=== PATIENT | male | born 1945 | race Caucasian/White ===

== ENCOUNTER 2017-04-05 10:42 | Emergency (ER) | payer MEDICARE, MEDICAID ==
[~2017-04-05] VITALS: Ht 172.7 cm; Wt 68.0 kg
[~2017-04-05 10:42] MED LIST: ASPI-605 PO; ATOR40TA PO; CARB-93 PO; CYAN10009 PO; DOCU-170 PO; FAMO-132 PO; FOLI1TAB16 PO
[2017-04-05] MEDS ORDERED: ACET-2154 PO (11:04)
[2017-04-05] MEDS ORDERED: MULT-1119 PO (11:04)
[2017-04-05] MEDS ORDERED: DIVA250T4 PO (11:04)
[2017-04-05] MEDS ORDERED: QUET25TA34 PO (11:04)
[2017-04-05] MEDS ORDERED: GABA-534 PO (11:04)
[2017-04-05] MEDS ORDERED: MEMA10TA21 PO (11:04)
[2017-04-05] MEDS ORDERED: LISI-607 PO (11:04)
[2017-04-05] MEDS ORDERED: CYAN10009 PO (11:04)
[2017-04-05 11:45] LABS: BASOPHILS % (AUTO) 0.5 % (0.0-2.0); EOSINOPHILS # (AUTO) 0.1 K/uL (0.0-0.7); HEMATOCRIT 34.5 % (40-50); HEMOGLOBIN 11.9 G/DL (14.0-18.0); LYMPHOCYTES # (AUTO) 0.8 K/UL (0.8-4.8); LYMPHOCYTES % (AUTO) 12.2 % (20.5-51.5); MEAN CORPUSCULAR HEMOGLOBIN 28.3 UUG (27.0-31.0); MEAN CORPUSCULAR HGB CONC 35 g/dL (32.0-37.0); MEAN CORPUSCULAR VOLUME 82.1 FL (82.0-92.0); MONOCYTES # (AUTO) 0.6 K/UL (0.1-1.30); MONOCYTES % (AUTO) 8.3 % (0.0-11.0); NEUTROPHILS # (AUTO) 5.2 K/UL (1.8-8.9); PLATELET COUNT (AUTO) 190 K/UL (150-450); RED BLOOD CELL COUNT(AUTO) 4.21 MIL/UL (4.7-6.1); WHITE BLOOD COUNT (AUTO) 6.7 K/UL (4.0-11.2)
[2017-04-05 11:51] LABS: ALANINE AMINOTRANSFERASE 10 U/L (16-63); ALKALINE PHOSPHATASE 49 U/L (50-136); ASPARTATE AMINOTRANSFERASE 20 U/L (15-37); BILIRUBIN,DIRECT 0.1 mg/dL (0.0-0.2); BILIRUBIN,TOTAL 0.3 mg/dL (0.2-1.0); CARBON DIOXIDE 31 mmol/L (21-32); CHLORIDE 106 mmol/L (98-107); GLUCOSE 106 mg/dL (74-106); POTASSIUM 4.3 mmol/L (3.5-5.1); UREA NITROGEN, BLOOD 31 mg/dL (7-18)
[2017-04-05 11:53] LABS: ETHANOL < 3 MG/DL (0-0)
--- NOTE | 2017-04-05 11:53 | NUR ---
Patient says that he does not feel like voiding at this time. Urinal is at bedside. Patient is calm & cooperative at this time.
[2017-04-05 11:54] LABS: CREATININE 1.6 mg/dL (0.6-1.3)
[2017-04-05 11:55] LABS: ACETAMINOPHEN < 2.0 ug/mL (10-30)
--- NOTE | 2017-04-05 13:09 | NUR ---
Patient is eating with good appetite, still pending urine sample.
--- NOTE | 2017-04-05 14:46 | NUR ---
Patient's spouse is at bedside.
--- NOTE | 2017-04-05 15:10 | NUR ---
Patient is resting comfortably in bed with eyes closed, no acute change in condition seen.
--- NOTE | 2017-04-05 17:09 | NUR ---
Patient frequently shouted "Help, help, help." Patient was assisted accordingly. Patient demanded for plastic cup instead of styrofoam- kitchen notified. Patient demanded for 4 cups of orange juice- done. [place] removed from his left foot per patient's demand- done. Comfort and safety measures maintained. Patient is still waiting for psych maintenance worker swimming pool's evaluation.
--- NOTE | 2017-04-05 18:09 | NUR ---
Fawad Navarro is now here in our ER department- pending evaluation still.
--- NOTE | 2017-04-05 18:26 | NUR ---
Patient is eating dinner tray with good appetite.
--- NOTE | 2017-04-05 18:35 | NUR ---
Patient voided on his diaper while eating dinner. We'll change diaper after eating.
--- NOTE | 2017-04-05 19:13 | NUR ---
Per Fawad no hold. [facility].
--- NOTE | 2017-04-05 19:15 | NUR ---
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
--- NOTE | 2017-04-05 20:27 | NUR ---
Patient discharged to home in stable conditon. Written and verbal after care instructions given. Patient verbalizes understanding of instructions. Picked up by [facility]. All belongings with patient. No complaint of pain upon discharge.
[2017-04-05 20:31] VITALS: BP 137/77
== END 2017-04-05 20:33 | disposition home or self-care (01) ==
LOC: ER 10:42
DX: R45.1 Restlessness and agitation (principal); K21.9 Gastro-esophageal reflux disease without esophagitis; F31.9 Bipolar disorder, unspecified; F20.9 Schizophrenia, unspecified; D64.9 Anemia, unspecified
CPT/HCPCS: 36415; 80048; 80076; 85025; 93005; 99285; A4663; G0480; G0481; G0482; G6040-TC